=== PATIENT | female | born 1980 | race Caucasian/White ===

== ENCOUNTER 2018-12-10 05:54 | Inpatient (IN) | payer OTHER ==
[2018-12-10 06:35] VITALS: BMI 34.2
[2018-12-10] MEDS ORDERED: Acetaminophen 500 MG TAB PO PRN (07:06)
[2018-12-10] MEDS ORDERED: Lactated Ringer's 1,000 ML IV SCH ×2 (07:06)
[2018-12-10] MEDS ORDERED: Ondansetron PF 4 MG/2 ML Vial IVP PRN ×2 (07:06→08:51)
[2018-12-10] MEDS ORDERED: Promethazine HCl 25 MG/ML VIAL IM PRN ×2 (07:06→08:51)
[2018-12-10] MEDS ORDERED: hydrALAZINE 20 MG/ML VIAL SLOW IVP PRN ×2 (07:06→13:23)
[2018-12-10] MEDS ORDERED: Butorphanol Tartrate 1 MG/ML VIAL SLOW IVP PRN (07:06)
[2018-12-10] MEDS ORDERED: Fentanyl 4 mcg/Bup 0.1% Cadd 100 ML ONE (07:50)
[2018-12-10 08:12] LABS: Hemoglobin 13.5 g/dL (12.0-16.0); Mean Corpuscular HGB CONC 33.7 g/dL (32.0-36.0); Mean Corpuscular Hemoglobin 31.1 pg (27.0-31.0); Mean Corpuscular Volume 92.2 fL (78.0-98.0); Mean Platelet Volume 9.4 fL (7.4-10.4); Platelet Count 235 thou/uL (130-400); RBC Distribution Width 12.6 % (11.5-14.5); Red Blood Cell (RBC) Count 4.33 mill/uL (4.20-5.40); White Blood Cell (WBC) Count 15.3 thou/uL (4.8-10.8)
[2018-12-10] MEDS ORDERED: Lidocaine 1% (PF) 30 ML VIAL ONE (08:19)
[2018-12-10 08:20] LABS: HBSAg Index 0.16 S/CO (0-0.99); Hep B Surf Ag Non-Reactive S/CO (NonReactive); Syphilis Antibody Nonreactive (Nonreactive); Syphilis Antibody Index 0.05 S/CO (<1.00 Non-Reactive)
[2018-12-10] MEDS ORDERED: diphenhydrAMINE 50 MG/ML VIAL IVP PRN (08:51)
[2018-12-10] MEDS ORDERED: Lactated Ringer's 500 ML IV PRN (08:51)
[2018-12-10] MEDS ORDERED: ePHEDrine/0.9% NaCl/PF SYRINGE 50 mg/10 ml SLOW IVP PRN (08:51)
[2018-12-10] MEDS ORDERED: Acetaminophen 325 MG TAB PO PRN (08:51)
[2018-12-10] MEDS ORDERED: Naloxone HCl 0.4 mg/ml Vial IVP PRN ×2 (08:51)
[2018-12-10] MEDS ORDERED: Communication Order-Pharmacy FS SCH (09:00)
[2018-12-10] MEDS ORDERED: Fentanyl 4 mcg/Bupivacaine 0.1% Cassette 100 ML EPIDURAL SCH (09:00)
[2018-12-10] MEDS: NS / Oxytocin 40 units/1000ml 1,000 ML ONE ×2 (12:21→16:58)
[2018-12-10] MEDS ORDERED: Benzocaine-Menthol 82.5 ML CAN TOP PRN (13:23)
[2018-12-10] MEDS ORDERED: Adacel (T-DAP) 0.5 ML SYRINGE IM ONE (13:23)
[2018-12-10] MEDS ORDERED: Milk Of Magnesia 30 ML UDCUP PO PRN (13:23)
[2018-12-10] MEDS ORDERED: Bisacodyl 10 MG SUPP PR PRN (13:23)
[2018-12-10] MEDS ORDERED: NS / Oxytocin 40 units/1000ml 1,000 ML IV SCH (13:23)
[2018-12-10] MEDS: Ibuprofen 800 MG TAB PO SCH ×2 (16:53→21:06)
[2018-12-10] MEDS: Ferrous Sulfate 325 MG TAB PO SCH (21:05)
[2018-12-10] MEDS: HYDROcodone/Acetaminophen 5/325 mg Tablet PO PRN (21:06)
[2018-12-10] MEDS: Docusate Calcium (SURFAK) 240 MG CAP PO SCH (21:06)
[2018-12-11] MEDS: HYDROcodone/Acetaminophen 5/325 mg Tablet PO PRN ×2 (04:31→14:00)
[2018-12-11] MEDS: Ibuprofen 800 MG TAB PO SCH ×2 (06:24→13:58)
[2018-12-11] MEDS: Ferrous Sulfate 325 MG TAB PO SCH ×2 (08:15→16:47)
[2018-12-11 08:17] VITALS: BP 105/55; TEMP 97.6
[2018-12-11] MEDS: Docusate Calcium (SURFAK) 240 MG CAP PO SCH (08:23)
== END 2018-12-11 17:00 | disposition home or self-care (01) | DRG 807 ==
LOC: L&D/OP 05:54 → L&D 06:45 → 3SW 18:27
PROVIDERS: ADMIT Family Medicine; ATTEND Family Medicine
PROC: 10E0XZZ Delivery of Products of Conception, External Approach (ICD-10-PCS; principal; 2018-12-10)
PROC: 0KQM0ZZ Repair Perineum Muscle, Open Approach (ICD-10-PCS; 2018-12-10)
DX: O76 Abnormality in fetal heart rate and rhythm complicating labor and delivery (principal); Z37.0 Single live birth; O69.81X0 Labor and delivery complicated by cord around neck, without compression, not applicable or unspecified; O70.1 Second degree perineal laceration during delivery; Z3A.40 40 weeks gestation of pregnancy
CPT/HCPCS: 51702; 85027; 86780; 86850; 86900; 86901; 87340; 90715; 99285; J2001; J2405